=== PATIENT | male | born 1950 | race American Indian/Alaskan Native ===

== ENCOUNTER 2019-01-10 19:47 | Emergency (ER) | payer MEDICARE, MEDICAID ==
[2019-01-10] MEDS ORDERED: Nitroglycerin 0.4 MG Tab.SL SL PRN (19:56)
[2019-01-10] MEDS ORDERED: Morphine 4 MG/ML Syringe IVPUSH PRN (19:56)
--- NOTE | 2019-01-10 20:00 | EDM.PDOC ---
ED HPI GENERAL MEDICAL PROBLEM - General Chief Complaint: Chest Pain Stated Complaint: CHEST PAIN Time Seen by Provider: 01/10/19 19:52 Source of Information: Reports: Patient, EMS, RN Notes Reviewed History Limitations: Reports: No Limitations - History of Present Illness INITIAL COMMENTS - FREE TEXT/NARRATIVE: 68-year-old gentleman presents to emergency department today complaint of chest pain, he arrived by EMS services he did receive aspirin and nitroglycerin initially states his chest pain was 7 out of 10 the nitroglycerin reduced it to 5 out of 10. He states the chest pain started last night has progressively gotten worse does have a history of myocardial infarction several decades ago does not follow with her regular physician does use tobacco products Chest Pain Score (Numeric/FACES): 5 - Related Data Allergies Allergy/AdvReac Type Severity Reaction Status Date / Time amoxicillin Allergy Shortness Verified 01/10/19 19:52 of Breath Penicillins Allergy Shortness Verified 01/10/19 19:52 of Breath tuberculin,PPD,multi-puncture Allergy Rash Verified 01/10/19 19:52 Home Meds: Home Meds ARIPiprazole [Abilify] 1 tab PO DAILY 01/10/19 [History] Cholecalciferol (Vitamin D3) [Vitamin D] 2,000 unit PO DAILY 01/10/19 [History] Citalopram [Citalopram HBr] 1 tab PO DAILY 01/10/19 [History] Folic Acid 1 tab PO DAILY 01/10/19 [History] Folic Acid/Vit B Complex and C [Dialyvite] 1 tab PO DAILY 01/10/19 [History] Gabapentin [Neurontin] 1 tab PO BID 01/10/19 [History] Gabapentin [Neurontin] 600 mg pe PO BEDTIME 01/10/19 [History] Insulin Glargine,Hum.Rec.Anlog [Lantus Solostar] 20 units SQ BEDTIME 01/10/19 [ History] Insulin Lispro [Humalog Kwikpen U-100] 5 units SQ TIDMEALS 01/10/19 [History] LORazepam 1 tab PO BEDTIME 01/10/19 [History] Lactulose 30 ml PO DAILY 01/10/19 [History] Lactulose 60 ml PO BID 01/10/19 [History] Omeprazole Magnesium [Prilosec Otc] 40 mg PO DAILY 01/10/19 [History] Rifaximin [Xifaxan] 1 tab PO BID 01/10/19 [History] Vitamin B Complex/Folic Acid [Vitamin B-100 Complex] 1 tab PO DAILY 01/10/19 [ History] Zinc Sulfate 1 tab PO DAILY 01/10/19 [History] buPROPion HCl [Wellbutrin Xl] 1 tab PO DAILY 01/10/19 [History] traZODone 1 tab PO BEDTIME 01/10/19 [History] Past Medical History Cardiovascular History: Reports: CAD, High Cholesterol, Hypertension, DE Social & Family History - Tobacco Use Smoking Status *Q: Current Every Day Smoker ED ROS GENERAL - Review of Systems Review Of Systems: See Below Constitutional: Denies: Diaphoresis HEENT: Reports: No Symptoms Respiratory: Reports: Shortness of Breath Cardiovascular: Reports: Chest Pain, Dyspnea on Exertion GI/Abdominal: Reports: Nausea. Denies: Vomiting Musculoskeletal: Reports: No Symptoms Skin: Reports: No Symptoms Neurological: Reports: No Symptoms ED EXAM, GENERAL - Physical Exam Exam: See Below Exam Limited By: No Limitations General Appearance: Alert, WD/WN, No Apparent Distress Head: Atraumatic, Normocephalic Neck: Normal Inspection, Supple, Non-Tender, Full Range of Motion Respiratory/Chest: No Respiratory Distress, No Accessory Muscle Use, Rhonchi, Other (Chest is tender to palpation underneath the left breast) Cardiovascular: Regular Rate, Rhythm, No Murmur GI/Abdominal: Soft, Non-Tender Extremities: Normal Inspection, Normal Range of Motion, Non-Tender, No Pedal Edema Course - Vital Signs Last Recorded V/S: Last Vital Signs Temp 98.0 F 01/10/19 20:21 Pulse 69 01/10/19 20:21 Resp 18 01/10/19 20:21 BP 132/68 01/10/19 20:21 Pulse Ox 96 01/10/19 20:21 - Orders/Labs/Meds Orders: Active Orders 24 hr Category Date Time Status Cardiac Monitoring [RC] .As Directed Care 01/10/19 19:57 Active Peripheral IV Care [RC] . DIRECTED Care 01/10/19 20:01 Active Morphine Med 01/10/19 19:56 Active 4 mg IVPUSH Q10M PRN Nitroglycerin [Nitrostat] Med 01/10/19 19:56 Active 0.4 mg SL Q5M PRN Sodium Chloride 0.9% [Saline Flush] Med 01/10/19 20:01 Active 10 ml FLUSH ASDIRECTED PRN Peripheral IV Insertion Adult [OM.PC] Urgent Oth 01/10/19 20:01 Ordered Medication Orders Morphine Sulfate (Morphine) 4 mg IVPUSH Q10M PRN PRN Reason: Chest Pain Stop: 01/11/19 19:57 Last Admin: 01/10/19 20:14 Dose: 4 mg Nitroglycerin (Nitrostat) 0.4 mg SL Q5M PRN PRN Reason: Chest Pain Stop: 01/11/19 19:57 Sodium Chloride (Saline Flush) 10 ml FLUSH ASDIRECTED PRN PRN Reason: Keep Vein Open Labs: Laboratory Tests 01/10/19 01/10/19 01/10/19 Range/Units 20:08 20:08 20:08 WBC 4.6 (4.5-11.0) K/uL RBC 4.33 (4.30-5.90) M/uL Hgb 13.0 (12.0-15.0) g/dL Hct 38.8 L (40.0-54.0) % MCV 90 (80-98) fL MCH 30 (27-31) pg MCHC 34 (32-36) % Plt Count 119 L (150-400) K/uL Neut % (Auto) 65 (36-66) % Lymph % (Auto) 22 L (24-44) % Barren % (Auto) 11 H (2-6) % Eos % (Auto) 1 L (2-4) % Baso % (Auto) 0 (0-1) % D-Dimer, Quantitative < 100 (0.0-400.0) ng/mL Sodium 136 L (140-148) mmol/L Potassium 3.9 (3.6-5.2) mmol/L Chloride 103 (100-108) mmol/L Carbon Dioxide 28 (21-32) mmol/L Anion Gap 8.9 (5.0-14.0) mmol/L BUN 7 (7-18) mg/dL Creatinine 1.3 (0.8-1.3) mg/dL Est Cr Clr Drug Dosing 52.26 mL/min Estimated GFR (MDRD) 55 L (>60) Glucose 331 H (74-106) mg/dL Calcium 8.7 (8.5-10.1) mg/dL Total Bilirubin 0.5 (0.2-1.0) mg/dL AST 37 (15-37) U/L ALT 38 (12-78) U/L Alkaline Phosphatase 172 H (46-116) U/L Troponin I < 0.017 (0.000-0.056) ng/mL Total Protein 6.4 (6.4-8.2) g/dL Albumin 2.9 L (3.4-5.0) g/dL Globulin 3.5 (2.3-3.5) g/dL Albumin/Globulin Ratio 0.8 L (1.2-2.2) Meds: Medications Generic Name Dose Route Start Last Admin Trade Name Freq PRN Reason Stop Dose Admin Morphine Sulfate 4 mg 01/10/19 19:56 01/10/19 20:14 Morphine IVPUSH 01/11/19 19:57 4 mg Q10M PRN Administration Chest Pain Nitroglycerin 0.4 mg 01/10/19 19:56 Nitrostat SL 01/11/19 19:57 Q5M PRN Chest Pain Sodium Chloride 10 ml 01/10/19 20:01 Saline Flush FLUSH ASDIRECTED PRN Keep Vein Open Discontinued Medications Generic Name Dose Route Start Last Admin Trade Name Freq PRN Reason Stop Dose Admin Ketorolac Tromethamine 30 mg 01/10/19 20:49 01/10/19 21:01 Toradol IVPUSH 01/10/19 20:50 30 mg ONETIME ONE Administration Departure - Departure Time of Disposition: 21:48 Disposition: Home, Self-Care 01 Condition: Fair Clinical Impression: Chest wall pain Instructions: Chest Wall Pain, [id number] Referrals: PCP,None [Primary Care Provider] - Forms: ED Department Discharge Additional Instructions: Use the Toradol as needed for pain control,, Please followup with your primary care provider in 3-5 days if not better, please call return to the emergency department with worsening of symptoms. - My Orders Last 24 Hours: My Active Orders 01/10/19 19:56 Morphine 4 mg IVPUSH Q10M PRN Nitroglycerin [Nitrostat] 0.4 mg SL Q5M PRN 01/10/19 19:57 Cardiac Monitoring [RC] .As Directed 01/10/19 20:01 Peripheral IV Care [RC] . DIRECTED Sodium Chloride 0.9% [Saline Flush] 10 ml FLUSH ASDIRECTED PRN Peripheral IV Insertion Adult [OM.PC] Urgent - Assessment/Plan Last 24 Hours: My Active Orders 01/10/19 19:56 Morphine 4 mg IVPUSH Q10M PRN Nitroglycerin [Nitrostat] 0.4 mg SL Q5M PRN 01/10/19 19:57 Cardiac Monitoring [RC] .As Directed 01/10/19 20:01 Peripheral IV Care [RC] . DIRECTED Sodium Chloride 0.9% [Saline Flush] 10 ml FLUSH ASDIRECTED PRN Peripheral IV Insertion Adult [OM.PC] Urgent Plan: Assessment Acuity = acute Site and laterality = chest wall pain Etiology = unknown etiology Manifestations = none Location of injury = Home Lab values = CBC unremarkable, d-dimer was negative glucose elevated 331 consistent with hyperglycemia troponin was negative, chest x-ray shows no acute process EKG demonstrates normal sinus rhythm Plan He had good relief with the Toradol injection provided in the emergency department plan is discharge home with ketorolac 10 mg by mouth 3 times a day when necessary total #10 follow-up primary care in 3-5 days if no improvement This note was dictated using [employer] voice recognition software please call with any questions on syntax or grammar.
[2019-01-10] MEDS ORDERED: Sodium Chloride 0.9% 10 ML Syringe FLUSH PRN (20:01)
--- NOTE | 2019-01-10 20:31 | CRLCR ---
INDICATION: Chest pain TECHNIQUE: Chest 1 view. COMPARISON: None FINDINGS: Cardiovascular and mediastinum: Heart size and vasculature are normal in caliber and appearance. Mediastinum is within normal limits. Lungs and pleural space: Lungs are clear except for minimal left basilar atelectasis. No sign of infiltrate or mass. No sign of pleural effusion. No pneumothorax. Bones and soft tissues: No significant findings. IMPRESSION: Unremarkable chest. Dictated by: Darek Jimenez MD @ 01/10/2019 20:29:21 (Electronically Signed)
[2019-01-10] MEDS ORDERED: Ketorolac 30 MG/ML SDV IVPUSH ONE (20:49)
== END 2019-01-11 00:42 | disposition home or self-care (01) ==
LOC: JP.ED 19:47
DX: R07.89 Other chest pain (principal); I10 Essential (primary) hypertension; I25.10 Atherosclerotic heart disease of native coronary artery without angina pectoris; I25.2 Old myocardial infarction; Z79.899 Other long term (current) drug therapy; Z88.0 Allergy status to penicillin; Z79.4 Long term (current) use of insulin; Z88.1 Allergy status to other antibiotic agents; Z88.8 Allergy status to other drugs, medicaments and biological substances
CPT/HCPCS: 36415; 71045; 80053; 84484; 85025; 85379; 96374; 96375; 99284; 99285; J1885; J2270

== ENCOUNTER 2020-07-14 02:59 | Emergency (ER) | payer MEDICARE, MEDICAID ==
--- NOTE | 2020-07-14 03:16 | EDM.PDOC ---
ED HPI GENERAL MEDICAL PROBLEM - General Chief Complaint: General Stated Complaint: FELL AND HIT HEAD VIA NORTH Time Seen by Provider: 07/14/20 03:05 Source of Information: Reports: Patient, EMS, Other ([facility] logger) History Limitations: Reports: No Limitations - History of Present Illness INITIAL COMMENTS - FREE TEXT/NARRATIVE: 70-year-old male who supposedly fell out of bed and hit his head, was sent in by ambulance by the staff at the sn[facility]. The patient has no complaints, supposedly he had his head but there is no objective evidence of trauma. Onset: Sudden Duration: Hour(s): (2 hours ago) Location: Reports: Head - Related Data Allergies Allergy/AdvReac Type Severity Reaction Status Date / Time amoxicillin Allergy Shortness Verified 01/10/19 19:52 of Breath Penicillins Allergy Shortness Verified 01/10/19 19:52 of Breath tuberculin,PPD,multi-puncture Allergy Rash Verified 01/10/19 19:52 Home Meds: Home Meds Folic Acid 1 tab PO DAILY 01/10/19 [History] Folic Acid/Vit B Complex and C [Dialyvite] 1 tab PO DAILY 01/10/19 [History] Insulin Glargine,Hum.Rec.Anlog [Lantus Solostar] 18 units SQ BEDTIME 01/10/19 [History] Insulin Lispro [Humalog Kwikpen U-100] 10 units SQ TIDMEALS 01/10/19 [History] LORazepam 1 tab PO BEDTIME 01/10/19 [History] Lactulose 60 ml PO TID 01/10/19 [History] Omeprazole Magnesium [Prilosec Otc] 20 mg PO DAILY 01/10/19 [History] Rifaximin [Xifaxan] 1 tab PO BID 01/10/19 [History] Zinc Sulfate 1 tab PO DAILY 01/10/19 [History] Cholecalciferol (Vitamin D3) [Vitamin D3] 2,000 unit PO DAILY 07/14/20 [History] DULoxetine [Cymbalta] 120 mg PO DAILY 07/14/20 [History] QUEtiapine [SEROquel] 200 mg PO BEDTIME 07/14/20 [History] Thiamine [Vitamin B-1] 100 mg PO DAILY 07/14/20 [History] Past Medical History Cardiovascular History: Reports: CAD, High Cholesterol, Hypertension, DE Respiratory History: Reports: TB Gastrointestinal History: Reports: GERD, Other (See Below) Other Gastrointestinal History: intestinal metaplasia of gastric mucosa Genitourinary History: Reports: Other (See Below) Other Genitourinary History: kidney removed unsure of which one Musculoskeletal History: Reports: Arthritis, Other (See Below) Other Musculoskeletal History: 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 Neurological History: Reports: Other (See Below) Other Neuro History: cognitive dysfunction Psychiatric History: Reports: Anxiety, Depression Endocrine/Metabolic History: Reports: Diabetes, Type II Immunologic History: Reports: Other (See Below) Other Immunologic History: hepatitis c virus cirrhosis - Infectious Disease History Infectious Disease History: Reports: Hepatitis C, TB Social & Family History - Family History Family Medical History: No Pertinent Family History - Tobacco Use Tobacco Use Status *Q: Current Every Day Tobacco User Years of Tobacco use: 50 Packs/Tins Daily: 0.5 - Caffeine Use Caffeine Use: Reports: Coffee - Recreational Drug Use Recreational Drug Use: No ED ROS GENERAL - Review of Systems Review Of Systems: See Below Constitutional: Denies: Fever, Chills HEENT: Denies: Vision Change Respiratory: Denies: Shortness of Breath GI/Abdominal: Denies: Nausea, Vomiting Skin: Denies: Bruising Neurological: Denies: Headache ED EXAM, GENERAL - Physical Exam Exam: See Below Exam Limited By: No Limitations General Appearance: Alert, No Apparent Distress Eye Exam: Bilateral Eye: PERRL Head: Atraumatic Neck: Supple, Non-Tender Respiratory/Chest: Lungs Clear Neurological: Alert Psychiatric: Flat Affect Skin Exam: Warm, Dry Course - Vital Signs Last Recorded V/S: Last Vital Signs Temp 97 F 07/14/20 03:01 Pulse 67 07/14/20 03:01 Resp 13 07/14/20 03:01 BP 124/94 H 07/14/20 03:01 Pulse Ox 98 07/14/20 03:01 - Re-Assessments/Exams Free Text/Narrative Re-Assessment/Exam: 07/14/20 03:15 The [facility] staff was called for additional information as the patient cannot supply any and there was no phone call or information sent with the patient. 07/14/20 03:17 Additional information is that the patient got up to go to the bathroom and apparently lost his balance or fell backwards bumping his head on the wall. The staff heard the fall, called the RN "on-call" and she advised him to come in to get checked. He is not on anticoagulants and I find no objective evidence of head injury, CT scan I do not think is indicated at this time. 07/14/20 06:44 Patient rested quietly without symptoms waiting for transfer back. Departure - Departure Time of Disposition: 04:17 Disposition: DC/Tfer to [facility] Clinical Impression: Closed head injury without concussion Qualifiers: Encounter type: initial encounter Qualified Code(s): S09.90XA - Unspecified injury of head, initial encounter Fall Qualifiers: Encounter type: initial encounter Qualified Code(s): W19.XXXA - Unspecified fall, initial encounter - Discharge Information Instructions: Head Injury, Adult, [id number] Referrals: PCP,None [Primary Care Provider] - Forms: ED Department Discharge Care Plan Goals: Increase activity and diet as tolerated and continue regular medications. Return if concerns such as significant mental status change, seizures or persistent nausea and vomiting. Sepsis Event Note (ED) - Evaluation Sepsis Screening Result: No Definite Risk - Focused Exam Vital Signs: Vital Signs Temp Pulse Resp BP Pulse Ox 07/14/20 03:01 97 F 67 13 124/94 H 98
== END 2020-07-14 04:18 ==
LOC: JP.ED 02:59
DX: S09.90XA Unspecified injury of head, initial encounter (principal); I25.10 Atherosclerotic heart disease of native coronary artery without angina pectoris; I10 Essential (primary) hypertension; I25.2 Old myocardial infarction; K21.9 Gastro-esophageal reflux disease without esophagitis; F41.9 Anxiety disorder, unspecified; F32.9 Major depressive disorder, single episode, unspecified; E11.9 Type 2 diabetes mellitus without complications; F17.210 Nicotine dependence, cigarettes, uncomplicated; Z79.4 Long term (current) use of insulin; Z79.899 Other long term (current) drug therapy; Z88.1 Allergy status to other antibiotic agents; Z88.0 Allergy status to penicillin; Z88.7 Allergy status to serum and vaccine; W06.XXXA Fall from bed, initial encounter
CPT/HCPCS: 99282; 99283